=== PATIENT | male | born 1995 | race Native Hawaiian/Other Pacific Islander ===

== ENCOUNTER 2017-01-19 22:52 | Emergency (ER) | payer OTHER ==
[~2017-01-19] VITALS: Ht 180.3 cm; Wt 83.0 kg
[2017-01-19 22:54] VITALS: BP 136/87; PULSE 117; RESP 15; TEMP 100.1; O2SAT 99
[2017-01-19 23:55] VITALS: BP 121/67; PULSE 113; RESP 18; TEMP 100.3; O2SAT 97
[2017-01-20] MEDS ORDERED: SODIUM CHLOR 0.9% 1000 ML INJ 1,000 ML IV SCH (00:22)
[2017-01-20] MEDS ORDERED: ACETAMINOPHEN 325 MG TAB PO ONE (00:30)
[2017-01-20] MEDS ORDERED: SODIUM CHLORIDE 0.9% FLUSH 10 ML FLUSH IV FLUSH PRN (00:30)
[2017-01-20] MEDS ORDERED: SODIUM CHLOR 0.9% 1000 ML INJ 1,000 ML IV ONE ×2 (01:00→02:30)
[2017-01-20 01:13] LABS: AUTOMATED NEUTROPHIL # 6.5 TH/MM3 (1.8-7.7); BASOPHIL % 0.2 % (0.0-2.0); EOSINOPHIL % 0.5 % (0.0-4.0); HEMATOCRIT 43.4 % (39.0-51.0); HEMO FLAGS DIFF FINAL; LYMPH % 15.4 % (9.0-44.0); LYMPHOCYTE # 1.3 TH/MM3 (1.0-4.8); MEAN CELL VOLUME 85.6 FL (80.0-100.0); MEAN CORPUSCULAR HEMOGLOBIN 29.8 PG (27.0-34.0); MEAN CORPUSCULAR HGB CONC 34.8 % (32.0-36.0); MONO % 7.2 % (0.0-8.0); NEUT % 76.7 % (16.0-70.0); PLATELET COUNT 178 TH/MM3 (150-450); RED BLOOD COUNT 5.07 MIL/MM3 (4.50-5.90); WHITE BLOOD COUNT 8.5 TH/MM3 (4.0-11.0)
[2017-01-20 01:32] LABS: BICARBONATE 25.3 MEQ/L (21.0-32.0); POTASSIUM 3.5 MEQ/L (3.5-5.1)
[2017-01-20 02:00] VITALS: BP 114/59; PULSE 82; RESP 18; O2SAT 98
--- NOTE | 2017-01-20 02:34 | PD ---
HPI Chief Complaint: GI Complaint Time Seen by Provider: 00:20 Travel History International Travel<30 days: No Contact w/Intl Traveler<30days: No Traveled to known affect area: No History of Present Illness HPI 21-year-old male came to the emergency room with history of diarrhea that started this morning. Patient says he has had 6-7 episodes of loose watery stool. He has stomach cramps just before he has a bowel movement. No blood in the stool. It's mostly watery. Patient took an Imodium 2 hours prior to coming to the emergency room. His last stool was 2 hours ago. No history of vomiting or nausea. Patient had a temperature of 100.3 and tachycardia. He is otherwise a healthy person. No recent travel history. No sick contacts. No recent antibiotic history. FOR[facility]LY [facility], [facility] Past Medical History Narrative Medical List of his past medical, surgical, social and family history is reviewed from the nursing note. Medical History: Denies Significant Hx Tetanus Vaccination: < 5 Years Influenza Vaccination: No Past Surgical History Surgical History: No Previous Surgery Social History Alcohol Use: No Tobacco Use: No Substance Use: No Allergies-Medications (Allergen,Severity, Reaction): Coded Allergies: No Known Drug Allergies (Verified Allergy, Unknown, 01/19/17) Comments No known drug allergies. Narrative Medication Awaiting for the nurse to do medical reconciliation. However patient told me that he is not on any medications. Review of Systems Except as stated in HPI: all other systems reviewed are Neg Physical Exam Narrative GENERAL: Awake, alert, moderate distress SKIN: Focused skin assessment warm/dry. HEAD: Atraumatic. Normocephalic. EYES: Pupils equal and round. No scleral icterus. No injection or drainage. ENT: No nasal bleeding or discharge. Dry mucous membrane and lips NECK: Trachea midline. No JVD. CARDIOVASCULAR: Regular rate and rhythm. Tachycardia. No murmur appreciated. RESPIRATORY: No accessory muscle use. Clear to auscultation. Breath sounds equal bilaterally. GASTROINTESTINAL: Abdomen soft, non-tender, nondistended. Hepatic and splenic margins not palpable. MUSCULOSKELETAL: No obvious deformities. No clubbing. No cyanosis. No edema. NEUROLOGICAL: Awake and alert. No obvious cranial nerve deficits. Motor grossly within normal limits. Normal speech. PSYCHIATRIC: Appropriate mood and affect; insight and judgment normal. Data Data Last Documented VS Vital Signs Date Time Temp Pulse Resp B/P (MAP) Pulse Ox O2 Delivery O2 Flow Rate FiO2 01/20/17 02:45 99.2 88 16 103/59 (74) Room Air 01/20/17 02:00 98 Orders Orders Basic Metabolic Panel (Bmp) (01/20/17 00:22) Complete Blood Count With Diff (01/20/17 00:22) Iv Access Insert/Monitor (01/20/17 00:22) Ecg Monitoring (01/20/17 00:22) Oximetry (01/20/17 00:22) Sodium Chlor 0.9% 1000 Ml Inj (Ns 1000 M (01/20/17 00:22) Sodium Chloride 0.9% Flush (Ns Flush) (01/20/17 00:30) Acetaminophen (Tylenol) (01/20/17 00:30) Sodium Chlor 0.9% 1000 Ml Inj (Ns 1000 M (01/20/17 01:00) Blood Culture (01/20/17 00:52) Lactic Acid (01/20/17 00:52) Blood Glucose (01/20/17 00:53) Sodium Chlor 0.9% 1000 Ml Inj (Ns 1000 M (01/20/17 02:30) Labs Laboratory Tests Test 01/20/17 00:50 White Blood Count 8.5 TH/MM3 Red Blood Count 5.07 MIL/MM3 Hemoglobin 15.1 GM/DL Hematocrit 43.4 % Mean Corpuscular Volume 85.6 FL Mean Corpuscular Hemoglobin 29.8 PG Mean Corpuscular Hemoglobin Concent 34.8 % Red Cell Distribution Width 13.0 % Platelet Count 178 TH/MM3 Mean Platelet Volume 9.6 FL Neutrophils (%) (Auto) 76.7 % Lymphocytes (%) (Auto) 15.4 % Monocytes (%) (Auto) 7.2 % Eosinophils (%) (Auto) 0.5 % Basophils (%) (Auto) 0.2 % Neutrophils # (Auto) 6.5 TH/MM3 Lymphocytes # (Auto) 1.3 TH/MM3 Monocytes # (Auto) 0.6 TH/MM3 Eosinophils # (Auto) 0.0 TH/MM3 Basophils # (Auto) 0.0 TH/MM3 CBC Comment DIFF FINAL Differential Comment Blood Urea Nitrogen 14 MG/DL Creatinine 1.14 MG/DL Random Glucose 96 MG/DL Calcium Level 8.9 MG/DL Sodium Level 138 MEQ/L Potassium Level 3.5 MEQ/L Chloride Level 105 MEQ/L Carbon Dioxide Level 25.3 MEQ/L Anion Gap 8 MEQ/L Estimat Glomerular Filtration Rate 83 ML/MIN Lactic Acid Level 0.9 mmol/L MDM Medical Decision Making Medical Screen Exam Complete: Yes Emergency Medical Condition: Yes Medical Record Reviewed: Yes Differential Diagnosis Infectious diarrhea, viral illness, food poisoning Narrative Course 2:30 AM after I saw the patient and ordered blood test patient was getting his blood drawn at which point he told the nurse that he wanted to go to the bathroom. When he got up and was walking towards the restroom patient passed out and fell and had a small seizure episode. He came around right away. Denied of any injuries. He said that during the blood draw he was getting tinnitus and felt like he was going to pass out and after that he doesn't remember exactly what happened. Patient does not have any seizure history and this has never happened to him in the past. He was fully awake and answering questions since then. Patient was given IV fluid bolus 2 L. Blood test results came back and within normal limit. I just went and reassessed him and he was fast asleep. He woke up upon calling his name and said that he was feeling much better. I did a orthostatic vital signs on him and it was positive. I have ordered a 30 drove IV fluid bolus. Patient will be discharged home after that. He has been given instructions which she understands. Patient has not had any more bowel movements since he's been here. Critical Care Narrative Aggregate critical care time was 30 minutes. Time to perform other separately billable procedures was not included in the critical care time. My time did not include minutes spent treating any other patients simultaneously or on activities that did not directly contribute to the patient's treatment. The services I provided to this patient were to treat and/or prevent clinically significant deterioration that could result in: Dehydration, orthostatic hypotension, fluid resuscitation with 3 L of IV fluid bolus. I provided critical care services requiring my management, as noted below: Chart data review, documentation time, medication orders and management, vital sign assessments/reviewing monitor data, ordering and reviewing lab tests, ordering and interpreting/reviewing x-rays and diagnostic studies, care of the patient and discussion of the patient with the admitting physicians. Procedures EKG Prior to Arrival: No Diagnosis Primary Impression: Infectious diarrhea Additional Impressions: Dehydration Orthostatic hypotension Referrals: Primary Care Physician 2 days Additional Instructions: Please return to the ER if the condition worsens or any other new concerns. You must drink lots of fluid to keep herself hydrated. Eat VIOLETA diet which stands for banana, rice, applesauce, toast and tea for next 24 hours. Follow- up with your primary care next couple days if needed. Med/Other Pt SpecificInfo: No Change to Meds Disposition: 01 DISCHARGE HOME Condition: Stable Mayo Abebe MD Jan 20, 2017 02:34
[2017-01-20 02:45] VITALS: BP 103/59; PULSE 88; RESP 16; TEMP 99.2
== END 2017-01-20 03:36 | disposition home or self-care (01) ==
LOC: NEPE 22:52
DX: A09 Infectious gastroenteritis and colitis, unspecified (principal); E86.0 Dehydration; I95.1 Orthostatic hypotension
CPT/HCPCS: 80048; 83605; 85025; 87040; 96360; 99291; J7030